=== PATIENT | female | born 1950 | race Caucasian/White ===

== ENCOUNTER 2022-04-16 13:40 | Outpatient (CLI) | payer MEDICARE, SELFPAY | END 2022-04-16 13:41 | disposition home or self-care (01) | LOC: WOUND 13:41 | PROVIDERS: Visit Provider Nurse Practitioner Family | DX: L89.313 Pressure ulcer of right buttock, stage 3 (principal); L89.314 Pressure ulcer of right buttock, stage 4; L89.324 Pressure ulcer of left buttock, stage 4; L89.323 Pressure ulcer of left buttock, stage 3 | CPT/HCPCS: 11043; 99213 ==

== ENCOUNTER 2022-04-23 14:29 | Outpatient (CLI) | payer MEDICARE, SELFPAY | END 2022-04-23 14:30 | disposition home or self-care (01) | PROVIDERS: Visit Provider Nurse Practitioner Family | DX: L89.323 Pressure ulcer of left buttock, stage 3 (principal); L89.314 Pressure ulcer of right buttock, stage 4; L89.324 Pressure ulcer of left buttock, stage 4 | CPT/HCPCS: 11042; 11045 ==

== ENCOUNTER 2022-04-30 11:05 | Outpatient (CLI) | payer MEDICARE, SELFPAY | END 2022-04-30 11:06 | disposition home or self-care (01) | LOC: WOUND 11:09 | PROVIDERS: Visit Provider Nurse Practitioner Family | DX: L89.324 Pressure ulcer of left buttock, stage 4 (principal); L89.323 Pressure ulcer of left buttock, stage 3; L89.314 Pressure ulcer of right buttock, stage 4 | CPT/HCPCS: 11042; 11045 ==

== ENCOUNTER 2022-05-07 14:46 | Outpatient (CLI) | payer MEDICARE, SELFPAY | END 2022-05-07 14:47 | disposition home or self-care (01) | LOC: WOUND 14:46 | PROVIDERS: Visit Provider Nurse Practitioner Family | DX: L89.314 Pressure ulcer of right buttock, stage 4 (principal); L89.324 Pressure ulcer of left buttock, stage 4 | CPT/HCPCS: 11042 ==

== ENCOUNTER 2022-05-21 14:46 | Outpatient (CLI) | payer MEDICARE, SELFPAY | END 2022-05-21 14:47 | disposition home or self-care (01) | LOC: WOUND 14:46 | PROVIDERS: Visit Provider Nurse Practitioner Family | DX: L89.314 Pressure ulcer of right buttock, stage 4 (principal); L89.324 Pressure ulcer of left buttock, stage 4 | CPT/HCPCS: 11042 ==

== ENCOUNTER 2022-05-28 14:46 | Outpatient (CLI) | payer MEDICARE, SELFPAY | END 2022-05-28 14:47 | disposition home or self-care (01) | LOC: WOUND 14:46 | PROVIDERS: Visit Provider Nurse Practitioner Family | DX: L89.324 Pressure ulcer of left buttock, stage 4 (principal); L89.314 Pressure ulcer of right buttock, stage 4 | CPT/HCPCS: 11042 ==

== ENCOUNTER 2022-06-18 14:35 | Outpatient (CLI) | payer MEDICARE, SELFPAY | END 2022-06-18 14:36 | disposition home or self-care (01) | LOC: WOUND 14:35 | PROVIDERS: Visit Provider Nurse Practitioner Family | DX: L89.314 Pressure ulcer of right buttock, stage 4 (principal) | CPT/HCPCS: 11042 ==